=== PATIENT | male | born 1955 | race Caucasian/White ===

== ENCOUNTER → 2021-11-26 15:03 | Outpatient (BNVA) | payer SELFPAY | PROVIDERS: Family Provider Internal Medicine; PCP Family Medicine; Visit Provider Family Medicine | DX: E11.9 Type 2 diabetes mellitus without complications (principal) | CPT/HCPCS: 80053; 80061; 83036 ==

== ENCOUNTER → 2022-03-04 09:50 | Outpatient (BNVA) | payer MEDICARE, SELFPAY | PROVIDERS: Family Provider Internal Medicine; PCP Family Medicine; Visit Provider Family Medicine | DX: E11.9 Type 2 diabetes mellitus without complications (principal); I10 Essential (primary) hypertension | CPT/HCPCS: 80053; 80061; 83036 ==

== ENCOUNTER → 2022-06-12 09:36 | Outpatient (BNVA) | payer MEDICARE, SELFPAY | PROVIDERS: Family Provider Internal Medicine; PCP Family Medicine; Visit Provider Family Medicine | DX: I10 Essential (primary) hypertension (principal); E11.9 Type 2 diabetes mellitus without complications | CPT/HCPCS: 80053; 80061; 83036 ==

== ENCOUNTER → 2022-09-10 10:13 | Outpatient (BNVA) | payer MEDICARE, SELFPAY | PROVIDERS: Family Provider Internal Medicine; PCP Family Medicine; Visit Provider Family Medicine | DX: E87.1 Hypo-osmolality and hyponatremia (principal); I10 Essential (primary) hypertension; E11.9 Type 2 diabetes mellitus without complications | CPT/HCPCS: 80053; 80061; 83036 ==

== ENCOUNTER → 2023-03-13 10:12 | Outpatient (BNVA) | payer MEDICARE, SELFPAY | PROVIDERS: Family Provider Internal Medicine; PCP Family Medicine; Visit Provider Family Medicine | DX: E03.8 Other specified hypothyroidism (principal); E11.9 Type 2 diabetes mellitus without complications; I63.9 Cerebral infarction, unspecified; I10 Essential (primary) hypertension | CPT/HCPCS: 83036 ==

== ENCOUNTER → 2023-09-15 08:00 | Outpatient (BNVA) | payer MEDICARE, SELFPAY | PROVIDERS: Family Provider Internal Medicine; PCP Family Medicine; Visit Provider Family Medicine | DX: E11.9 Type 2 diabetes mellitus without complications (principal); I10 Essential (primary) hypertension; R73.03 Prediabetes; N18.9 Chronic kidney disease, unspecified | CPT/HCPCS: 80053; 80061; 83036; 85025 ==

== ENCOUNTER → 2024-03-15 10:15 | Outpatient (BNVA) | payer MEDICARE, SELFPAY | PROVIDERS: Family Provider Internal Medicine; PCP Family Medicine; Visit Provider Family Medicine | DX: E87.1 Hypo-osmolality and hyponatremia (principal); I10 Essential (primary) hypertension; E11.9 Type 2 diabetes mellitus without complications; R73.03 Prediabetes; N18.9 Chronic kidney disease, unspecified | CPT/HCPCS: 80053; 80061; 83036; 85025 ==

== ENCOUNTER 2024-03-24 13:57 | Outpatient (RCR) | payer MEDICARE, SELFPAY | END 2024-04-06 23:59 | disposition home or self-care (01) | LOC: SPT 13:57 | PROVIDERS: Family Provider Internal Medicine; PCP Family Medicine; Visit Provider Family Medicine | DX: I63.9 Cerebral infarction, unspecified (principal) | CPT/HCPCS: 97162 ==

== ENCOUNTER 2024-10-07 04:23 | Emergency (ER) | payer MEDICARE, SELFPAY ==
--- OUTSIDE RECORDS SUMMARY | 2024-09-20 04:30 | XMS_ITS ---
Author Organization [facility] Address [address] [facility] [place] [address] Care Team Providers Care Software Qa System Specialist Name Role Phone Kendrick Nuñez Primary Care Provider Darrel Arthur [phone] Encounters Encounter Location Date Provider Diagnosis [facility] [address] [place] [address] 09/20/2024 Darrel Moseley Plan Of Treatment Next Appt Details Provider Name:Darrel Mosleey , 10/13/2024 07:30:00 AM, [address] [place], [address], Provider Name:Rea mercado, 11/10/2024 01:15:00 PM, [address] [place], [address], Progress Notes * Uziel FORDDOB: (69 yo M)Acc No.[id number]:09/20/2024 Patient: Nixon ZEUSUziel MANN Provider: Vanessa Moseley M.D. :1955 A ge:69 Y S ex:Male Date:09/20/2024 Address:[address] [place] [address], [facility] Pcp:Kendrick Nuñez Check In:08:58 AM CSTCheck O ut:09:08 AM LPN Subjective: * Chief Complaints: * * Medical History: Objective: * Vitals: Assessment: Plan: * Treatment: * Billing Information: * Visit Code: * Procedure Codes: * Electronic signature of Darrel Moseley MD on 10/07/2024 at 04:30 AM CDT Sign off status: Pending * Provider: Vanessa Moseley M.D. Date: 09/20/2024 Generated for Lola valdez/Grace/Kendal on: 10/07/2024 04:30 AM CDT
--- OUTSIDE RECORDS SUMMARY | 2024-10-04 01:45 | XMS_ITS ---
Author Organization [facility] Address [address] [place] [address] Care Team Providers Care Staffing Assistant Name Role Phone Kendrick Nuñez Primary Care Provider Darrel Arthur [phone] REASON FOR VISIT [facility] +/- Encounters Encounter Location Date Provider Diagnosis [facility] [address] [place] [address], [place] [address] 10/04/2024 Darrel Moseley Plan Of Treatment Next Appt Details Provider Name:Darrel Moseley , 10/13/2024 07:30:00 AM, [address] [place], [address], Provider Name:Rea mercado, 11/10/2024 01:15:00 PM, [address] [place], [address], Progress Notes * Uziel FORDDOB: (69 yo M)Acc No.[id number]:10/04/2024 [place] Patient: Uziel RAJAN Provider: Vanessa Moseley M.D. :1955 A ge:69 Y S ex:Male Date:10/04/2024 Address:[address] [place] [address], [facility] Pcp:Kendrick Nuñez Subjective: * Chief Complaints: * 1 . LH +/-. * Medical History: Objective: * Vitals: Assessment: Plan: * Treatment: * Billing Information: * Visit Code: * Procedure Codes: * Electronic signature of Darrel Moseley MD on 10/07/2024 at 04:30 AM CDT Sign off status: Pending * Provider: Vanessa Moseley M.D. Date: 10/04/2024 Generated for Lola valdez/Grace/Kendal on: 10/07/2024 04:30 AM CDT
--- OUTSIDE RECORDS SUMMARY | 2024-10-06 09:45 | XMS_ITS ---
Author Organization [facility] Address [address] [place] [address] Care Team Providers Care Wire Mill Rover Name Role Phone Kendrick Nuñez Primary Care Provider Darrel Arthur Unavailable [phone] Allergies No Known Allergies REASON FOR VISIT heart cath follow w/darrel 10/06/24 pr, verbally verified meds Medications Medication SIG (Take, Route, Frequency, Duration) Notes Start Date End Date Status Atorvastatin Calcium 20 MG TAKE 1 TABLET BY MOUTH ONCE DAILY Oral for 90 Days Active Pioglitazone HCl 15 MG 1 tablet Oral Onc e a day for 90 days Active Eliquis 5 MG ONE TABLET Oral BID for 90 days Active Glimepiride 4 MG ONE TABLET Oral BID for 90 days Active Lisinopril 10 MG TAKE 1 TABLET BY INO TH TWICE DAILY Oral for 90 Days Active amLODIPine Besylate 5 MG TAKE 1 TABLET B Y MOUTH ONCE DAILY Oral for 90 Days Active Clopidogrel Bisulfate 75 MG 1 tablet Ora lly Once a day for 30 day(s) 10/06/2024 Active Social History Tobacco Use: Social History Observation Description Date Details (start date - stop date) Former Smoker NA - NA Tobacco Control (Standard) Question Answer Notes Tobacco use: Former smoker Problems Problem Type SNOMED Code ICD Code Onset Dates Problem Status W/U Status Risk Notes Problem Anginal pain (I20.9) Active confirmed Vital Signs Blood pressure systolic 130 mm Hg 10/07/19 25 Blood pressure diastolic 86 mm Hg 025 Heart Rate 99 /min 10/06/2024 Height 71 in 10/06/2024 Weight 241 lbs 10/06/2024 BMI 33.61 kg/m2 10/06/2024 Oximetry 97 % 10/06/2024 Weight-kg 109.32 kg 10/06/2024 Procedures Procedure Date Ordered Date Performed Result Body Sit e Coronary Angio with Left Heart Cath 10/06/2024 N/A Encounters Encounter Location Date Provider Diagnosis [facility] [address] [place] [phone] 10/06/2024 Darrel Moseley CAD (coronary artery disease) I25.10 ; Hypertension I10 ; Paroxysmal A-fib I48.0 and Anginal pain I20.9 Assessments Encounter Date Diagnosis (ICD Code) Assessment Notes Treatment Notes Treatment Clinical Notes Section Notes 10/06/2024 CAD (coronary artery disease) (ICD-10 - I25.10) Coronary Artery Disease: Two-vessel CAD including proximal to mid LAD disease as well as a critical circumflex lesion. Patient would like to proceed with staged PCI of the LAD and circumflex artery. Procedure explained in detail including risks potential complications alternatives and benefits. He does not wish to undergo CABG. I think this is reasonable especially given his history of prior stroke and residual left-sided weakness. I will start him on clopidogrel 75 mg daily. He knows to stop Eliquis 3 days prior to his staged PCI. Paroxysmal Atrial Fibrillation - Continue Eliquis 5 mg twice daily Hypertension - Controlled. Hyperlipidemia - Continue atorvastatin 20mg daily. Diabetes Mellitus - Controlled. 10/06/2024 Hypertension (ICD-10 - I10) Coronary Artery Disease: Two-vessel CAD including proximal to mid LAD disease as well as a critical circumflex lesion. Patient would like to proceed with staged PCI of the LAD and circumflex artery. Procedure explained in detail including risks potential complications alternatives and benefits. He does not wish to undergo CABG. I think this is reasonable especially given his history of prior stroke and residual left-sided weakness. I will start him on clopidogrel 75 mg daily. He knows to stop Eliquis 3 days prior to his staged PCI. Paroxysmal Atrial Fibrillation - Continue Eliquis 5 mg twice daily Hypertension - Controlled. Hyperlipidemia - Continue atorvastatin 20mg daily. Diabetes Mellitus - Controlled. 10/06/2024 Paroxysmal A-fib (ICD-10 - I48.0) Coronary Artery Disease: Two-vessel CAD including proximal to mid LAD disease as well as a critical circumflex lesion. Patient would like to proceed with staged PCI of the LAD and circumflex artery. Procedure explained in detail including risks potential complications alternatives and benefits. He does not wish to undergo CABG. I think this is reasonable especially given his history of prior stroke and residual left-sided weakness. I will start him on clopidogrel 75 mg daily. He knows to stop Eliquis 3 days prior to his staged PCI. Paroxysmal Atrial Fibrillation - Continue Eliquis 5 mg twice daily Hypertension - Controlled. Hyperlipidemia - Continue atorvastatin 20mg daily. Diabetes Mellitus - Controlled. 10/06/2024 Anginal pain (ICD-10 - I20.9) Coronary Artery Disease: Two-vessel CAD including proximal to mid LAD disease as well as a critical circumflex lesion. Patient would like to proceed with staged PCI of the LAD and circumflex artery. Procedure explained in detail including risks potential complications alternatives and benefits. He does not wish to undergo CABG. I think this is reasonable especially given his history of prior stroke and residual left-sided weakness. I will start him on clopidogrel 75 mg daily. He knows to stop Eliquis 3 days prior to his staged PCI. Paroxysmal Atrial Fibrillation - Continue Eliquis 5 mg twice daily Hypertension - Controlled. Hyperlipidemia - Continue atorvastatin 20mg daily. Diabetes Mellitus - Controlled. Plan Of Treatment Medication Medication Name Sig Start Date Stop Date Notes Clopidogrel Bisulfate 75 MG 1 tablet Ora lly Once a day for 30 day(s) 10/06/2024 Pending Test Test Name Order Date Prothrombin Time 23552 10/06/2024 Basic Metabolic Panel (BMP) 96820 2024 Lipid Panel Reflex DLDL 85480, 24427 05/2024 Partial Thromboplastin Time 04554 2024 CBC Reflex Man Diff 93355, 14614 025 Electrocardiogram 12 Lead Tracing-[id number] 10/06/2024 Coronary Angio with Left Heart Cath 05/2024 Next Appt Details Follow Up: 4 Weeks w/ Alexis Washburn: Provider Name:Darrel Moseley , 10/13/2024 07:30:00 AM, [address], [address], Provider Name:Rea mercado, 11/10/2024 01:15:00 PM, [address], [address], Progress Notes * Isela FORD: (69 yo M)Acc No.[id number]:10/06/2024 Progress Notes Patient: Uziel RAJAN Provider: Vanessa Moseley M.D. :1955 A ge:69 Y S ex:Male Date:10/06/2024 Address:[address] [place] [address], [facility] Pcp:Kendrick Nuñez Check In:02:45 PM CSTCheck O ut:04:10 PM MORTAR MAKER Subjective: * Chief Complaints: * 1 . Heart cath follow w/darrel 10/06/24 pr. 2. Verbally verified meds. * HPI: * :: Patient is a 69-year-old male referred for evaluation of an elevated coronary calcium score. He is accompanied by his . He has a history of atrial fibrillation, cerebrovascular accident with residual left-sided weakness, and diabetes. He reports progressive shortness of breath and severe fatigue. He is currently on Eliquis for atrial fibrillation. Cardiac Diagnostic Studies: CT Calcium Score: Total Agatston score 2046.5, consistent with severe coronary artery disease burden. * ROS: G eneral/Constitutional: Patient denies f ever , chills, sweats. Energy level is fair to poor. H ematology: Patient denies s wollen glands, excessive bruising. ? O phthalmologic: Patient denies c hange in vision, other eye problems. ? R espiratory: Patient denies c ough, congestion. A dmits S hortness of breath. A dmits S hortness of breath with exertion. C ardiovascular: Patient denies c hest pain, dizziness, palpitations, See HPI. A dmits S welling in hands/feet, a nkles. G astrointestinal: Patient denies a bdominal pain, blood in stool, diarrhea, nausea, vomiting. G enitourinary: Patient denies b lood in the urine, painful urination. D enies K idney problems. E NT: Patient denies d ecreased hearing , decreased sense of smell , difficulty in swallowing , ear pain , hoarseness , ringing in the ears , sinus pain , sore throat , swollen glands. E ndocrine: Patient denies c old intolerance, excessive thirst, heat intolerance, excessive hunger. M usculoskeletal: Patient denies a rthritis/arthralgia, muscle aches. A dmits L eg cramps. P eripheral Vascular: Patient denies p ain/cramping in legs after exertion. A dmits P ain/cramping in legs after exertion, l eft leg due to stroke. S kin: Patient denies h air changes, rash, itching. ? N eurologic: Patient denies d izziness , fainting , loss of strength , loss of use of extremity , new onset headache , seizures , stroke , tingling/numbness , tremor. ? P sychiatric: Patient denies f eelings of anxiety , feelings of depression. * Medical History: P vin:Obesity (disorder) , Status :: Active, HYPERTENSION, HYPERLIPIDEMIA, DIABETIC, STROKE. * Surgical History: a ngiogram x 2 , LHC - > Severe 2V obstructive CAD, including proximal LAD disease as detailed above. > Codominant coronary system. > Normal Left ventricular end diastolic pressure of 8 mmHg. No significant gradient noted across the aortic valve on pullback. > Outpatient Cardiothoracic consult for CABG was placed. 10.04.2024. * Hospitalization/Major Diagno stic Procedure: D amira Past Hospitalization. * Family History: F ather: HEART DISEASE. M other: DIABETIC. * Social History: T obacco Use: T obacco Control (Standard) T obacco use: F ormer smoker D rugs/Alcohol: C affeine I ntake: 1 -2 cups per day Do you drink alcohol?: No. * Medications: T aking amLODIPine Besylate 5 MG Tablet TAKE 1 TABLET BY MOUTH ONCE DAILY Oral , Taking Atorvastatin Calcium 20 MG Tablet TAKE 1 TABLET BY MOUTH ONCE DAILY Oral , Taking Eliquis 5 MG Tablet ONE TABLET Oral BID , Taking Glimepiride 4 MG Tablet ONE TABLET Oral BID , Taking Lisinopril 10 MG Tablet TAKE 1 TABLET BY MOUTH TWICE DAILY Oral , Taking Pioglitazone HCl 15 MG Tablet 1 tablet Oral Once a day , Medication List reviewed and reconciled with the patient * Allergies: N .K.D.A. Objective: * Vitals: H t: 71 in, Wt:241lbs, Wt-k.32 kg, BMI:33.61Index, BP:130/86mm Hg, HR:99/min, Oxygen sat %:97%, O2 Source: RA. * Examination: G eneral Examination: GENERAL APPEARANCE: c omfortable, in no acute distress.? HEART: i rregularly regular r ate and rhythm, no murmurs. CHEST: b ilateral chest expansion, clear to auscultation bilaterally. ABDOMEN: s oft, nontender. EXTREMITIES: n o significant pedal edema.. NEUROLOGIC: n o gross deficits noted. ? Assessment: * Assessment: 1. C AD (coronary artery disease) - I25.10 (Primary) 2 . H ypertension - I10 3 . P aroxysmal A-fib - I48.0 4 . A nginal pain - I20.9? Coronary Artery Disease: Two -vessel CAD including proximal to mid LAD disease as well as a critical circumflex lesion. Patient would like to proceed with staged PCI of the LAD and circumflex artery. Procedure explained in detail including risks potential complications alternatives and benefits. He does not wish to undergo CABG. I think this is reasonable especially given his history of prior stroke and residual left-sided weakness. I will start him on clopidogrel 75 mg daily. He knows to stop Eliquis 3 days prior to his staged PCI. Paroxysmal Atrial Fibrillation - Continue Eliquis 5 mg twice daily Hypertension - Controlled. Hyperlipidemia - Continue atorvastatin 20mg daily. Diabetes Mellitus - Controlled. Plan: * Treatment: 2.?Hypertension?LAB: Prothrombin Time 54313 ?LAB: Basic Metabolic Panel (BMP) 54574 ?LAB: Lipid Panel Reflex DLDL 87563, 32528 ?LAB: Partial Thromboplastin Time 15439 ?LAB: CBC Reflex Man Diff 07525, 74179 ?Imaging: Electrocardiogram 12 Lead Tracing-[id number] ?Procedure: Coronary Angio with Left Heart Cath* Eugenie Salmeron LPN 025 03:57:22 PM CDT > RIGHT RADIAL APPROACH LHC+/- WITH DR. CRUZ ON 10.13.24 AT 0730AM CHECK IN AT 0600AM LABS TO BE DONE THE MORNING OF 10.13.24//Eugenie Sun LPN 10/06/2024 04:33:50 PM CDT > UPDATEstaged PCI of the LAD and circumflex artery 3.?Paroxysmal A-fib? Start Clopidogrel Bisulfate Tablet, 75 MG, 1 tablet, Orally, Once a day, 30 day(s), 30, Start Date:10/06/2024.?LAB: Prothrombin Time 93300 ?LAB: Basic Metabolic Panel (BMP) 80582 ?LAB: Lipid Panel Reflex DLDL 59906, 66382 ?LAB: Partial Thromboplastin Time 83708 ?LAB: CBC Reflex Man Diff 73341, 71017 ?Imaging: Electrocardiogram 12 Lead Tracing-61468 ?Procedure: Coronary Angio with Left Heart Cath* Eugenie Salmeron LPN 025 03:57:22 PM CDT > RIGHT RADIAL APPROACH LHC+/- WITH DR. CRUZ ON 10.13.24 AT 0730AM CHECK IN AT 0600AM LABS TO BE DONE THE MORNING OF 10.13.24//Eugenie Sun, BEDSPREAD CUTTER 10/06/2024 04:33:50 PM CDT > UPDATEstaged PCI of the LAD and circumflex artery 4.?Anginal pain?LAB: Prothrombin Time 23940 ?LAB: Basic Metabolic Panel (BMP) 68390 ?LAB: Lipid Panel Reflex DLDL 97470, 67831 ?LAB: Partial Thromboplastin Time 72252 ?LAB: CBC Reflex Man Diff 01001, 18207 ?Imaging: Electrocardiogram 12 Lead Tracing-77965 ?Procedure: Coronary Angio with Left Heart Cath* Eugenie Salmeron LPN 025 03:57:22 PM CDT > RIGHT RADIAL APPROACH LHC+/- WITH DR. CRUZ ON 10.13.24 AT 0730AM CHECK IN AT 0600AM LABS TO BE DONE THE MORNING OF 10.13.24//Eugenie Sun, BEDSPREAD CUTTER 10/06/2024 04:33:50 PM CDT > UPDATEstaged PCI of the LAD and circumflex artery * Procedure Codes: 3 075F SYST BP GE 130 - 139MM HG, 3079F DIAST BP 80-89 MM HG * Follow Up: 4 Weeks w/ Maddison * Billing Information: * Visit Code: 21770 Office Visit, Est Pt., Level 4. * Procedure Codes: 3075F SYST BP GE 130 - 139MM HG. 3079F DIAST BP 80-89 MM HG. * Electronic signature of Darrel Moseley MD on 10/07/2024 at 04:30 AM CDT Sign off status: Pending * Provider: Vanessa Moseley M.D. Date: 10/06/2024 Generated for Lola valdez/Grace/Kendal on: 10/07/2024 04:30 AM CDT History and Physical Notes * HPI (History of Present Illness) Category Sub-Category Detail Notes Category Not es : Patient is a 69-year-old male referred for evaluation of an elevated coronary calcium score. He is accompanied by his . He has a history of atrial fibrillation, cerebrovascular accident with residual left-sided weakness, and diabetes. He reports progressive shortness of breath and severe fatigue. He is currently on Eliquis for atrial fibrillation. Cardiac Diagnostic Studies: CT Calcium Score: Total Agatston score 2046.5, consistent with severe coronary artery disease burden. Examination Category Sub-Category Detail Notes Category Not es General Examination GENERAL APPEARANCE: comforta ble, in no acute distress HEART: irregularly regular rate and rhythm, no murmurs CHEST: bilateral chest expa nsion, clear to auscultation bilaterally ABDOMEN: soft, nontender NEUROLOGIC: no gross deficits no carlos EXTREMITIES: no significant pedal edema.
[2024-10-07 04:25] VITALS: BP 127/92; PULSE 77; RESP 12; TEMP 36.5; O2SAT 96; BMI 33.5
--- OUTSIDE RECORDS SUMMARY | 2024-10-07 04:30 | XMS_ITS | Patient Health Record ---
Author Organization [facility] Address [address] [place], [place] [address] Care Team Providers Care Review Appraiser Name Role Phone Kendrick Nuñez Primary Care Provider Darrel Arthur Unavailable [phone] Libra Christopher Unavailable [phone] Allergies No Known Allergies Results Component Value Reference Range Notes Schedule Confirmation (Not y et reviewed by provider) Interpretation: Performing Lab: Notes/Report: Heart Cath Lt poss PTCA Prothrombin Time 89869 (Not yet reviewed by provider) Interpretation: Performing Lab: Notes/Report: ProTime 10.4 9.1-11.9 SEC Normal Range: 9 .1-11.9 INR .98 .90-1.20 Therapeutic Range: 2.0-3.0 Therapaeutic Range for heart valve replacement: 2.5-3.50 Basic Metabolic Panel (BMP) 14746 (Not yet reviewed by provider) Interpretation: Performing Lab: Notes/Report: Sodium 139 136-145 MMOL/L Potassium 4.6 3.5-5.1 MMOL/L Chloride 109 98-107 MMOL/L CO2 25.6 20.0-31.0 MMOL/L Glucose Serum 179 71-110 MG/DL Testing perfor med at [facility], [address] [place] [address] [place] [address]. CLIA ID#: [id number] BUN 20 7-21 MG/DL Creat 1.30 .57-1.17 MG/DL C-fuwwdk-e-benzoquinone imine (NAPQI) is a metabolite of acetaminophen, NAPQI concentrations of apparoximately 10 mg/L correlation to toxic levels of acetaminophen demonstrates a greater than or equil to 10% change in results. NAPQI concentrations greater than this may lead to falsely depressed results for patient samples. Use of this assay is not recommended for patients undergoing treatment with phenindione, due to the potential for falsely depressed results. GFR 60.0 Calculation per formed from GFR calculator provided by the [employer]. Glomerular Filtration rate(GRF) is the best overall index of kidney function. Normal GFR varies according to age,sex, body size, and declines with age. The National Kidney Foundation recommends using the CKD-EPI Creatinine Equation(2020) to estimate GFR. Anion Gap 9 5-15 BUN/Creat Ratio 15.4 12.0-20.0 % Calcium 9.5 8.7-10.4 MG/DL Osmo Serum,Calculated 295 280-300 MOSM/KG Partial Thromboplastin Time 44366 (Not yet reviewed by provider) Interpretation: Performing Lab: Notes/Report: PTT 24.7 22.6-31.8 SEC Therapeutic Range: 60-100. Critical Value Starting at > 100. CBC [place] Diff [address], 8 5007 (Not yet reviewed by provider) Interpretation: Performing Lab: Notes/Report: WBC 4.9 4.5-11.0 X10'3 RBC 4.56 4.50-5.90 X10'6 Hgb 13.7 13.5-17.5 G/DL Hct 42.7 41.0-53.0 % MCV 93.6 80.0-100.0 FL MCH 30.0 27.0-31.0 PG MCHC 32.1 31.0-37.0 G/DL Platelet 226 150-400 X10'3 RDW-SD 46.4 35.0-49.0 FL RDW-CV 13.3 12.2-15.6 % MPV 8.8 9.2-12.0 FL Review Auto Diff Conf WBC Auto Diff--49424 (Not ye t reviewed by provider) Interpretation: Performing Lab: Notes/Report: Added by Discern Rules Neutro Auto% 49.8 40.0-70.0 % Lymph Auto% 37.5 22.0-44.0 % Dixon Auto% 10.1 3.0-7.0 % Eos Auto% 2.2 2.0-4.0 % Baso Auto% 0.2 0.0-1.0 % NRBC% .00 .00-.20 /100 int act WBC's Neutro Abs 2.45 .80-7.70 Absolute Neutrophil Count 2450 Lymph Abs 1.85 .10-4.10 Dixon Abs .50 .20-1.00 Eos Abs .11 .00-.40 Baso Abs .01 .00-.20 NRBC# .00 .00-.20 Imm Gran Abs .01 .00-.10 Imm Gran% .2 .0-.4 % zzzHeart Cath Lt poss PTCA ( Not yet reviewed by provider) Interpretation: Performing Lab: Notes/Report: [id number]=iSite Schedule Confirmation (Not y et reviewed by provider) Interpretation: Performing Lab: Notes/Report: Heart Cath Lt poss PTCA Echo Complete EC-[id number] (Not yet reviewed by provider) Interpretation: Performing Lab: Notes/Report: Cardiopulmonary Services Name: MELISSA FORD Study Date: 09/20/2024 : 1955 Patient Location: [facility] Age: 69 yrs Gender: Male Height: 71 in Weight: 242 lb BP: 118/56 mmHg HR: 86 BSA: 2.3 m2 History: afib, CAD, HTN, HLD Reason For Study: afib Interpretation Summary A complete two-dimensional transthoracic echocardiogram was performed (2D, M- mode, Doppler and color flow Doppler). AF at rest. Left ventricular systolic function is borderline reduced. Left Ventricular Function is estimated to be 50-55%. There is mild concentric left ventricular hypertrophy. The right ventricle is moderately dilated. There is mild aortic valve sclerosis without evidence of stenosis.No hemodynamically significant valvular aortic stenosis. Trace aortic regurgitation. There is no mitral regurgitation noted. EKG Rhythm is A-fib. Left Ventricle The left ventricle is normal in size. There is mild concentric left ventricular hypertrophy. Left ventricular systolic function is borderline reduced. Left Ventricular Function is estimated to be 50-55%. Right Ventricle The right ventricle is moderately dilated. The right ventricular systolic function is normal. Atria The left atrial size is normal. The right atrium is mild to moderately dilated. Great Vessels Mild aortic root dilatation. Mitral Valve The mitral valve is grossly normal. There is no mitral regurgitation noted. Aortic Valve The aortic valve is trileaflet. The aortic valve opens well. There is mild aortic valve sclerosis without evidence of stenosis. No hemodynamically significant valvular aortic stenosis. Trace aortic regurgitation. Tricuspid Valve The triscupid valve leaflets appear normal. There is no stenosis, fluttering, or prolapse. There is trace tricuspid regurgitation. Pulmonic Valve The pulmonic valve is not well visualized. Mild pulmonic valvular regurgitation. MMode/2D Measurements & Calculations IVSd: 1.2 cm LVIDd: 4.7 cm FS: 26.1 % LVIDs: 3.5 cm EDV(Teich): 103.3 ml LVPWd: 1.3 cm ESV(Teich): 50.4 ml EF(Teich): 51.2 % asc Aorta Diam: 3.2 cm LVOT diam: 2.1 cm LVOT area: 3.5 cm2 Time Measurements Aortic HR: 81.3 BPM MM HR: 79.5 BPM Pulm. R-R: 0.68 sec Pulm. HR: 88.1 BPM Doppler Measurements & Calculations Ao V2 max: 129.3 cm/sec AI max jess: 124.1 cm/sec LV V1 max P.7 mmHg Ao max P.7 mmHg AI max P.2 mmHg LV V1 mean P.5 mmHg Ao V2 mean: 91.1 cm/sec LV V1 max: 81.7 cm/sec Ao mean P.8 mmHg AI dec slope: 52.0 cm/sec2 LV V1 mean: 57.1 cm/sec Ao V2 VTI: 24.0 cm AI P1/2t: 699.4 msec LV V1 VTI: 15.2 cm GEREMIAS(I,D): 2.2 cm2 GEREMIAS(V,D): 2.2 cm2 CO(LVOT): 4.3 l/min PA V2 max: 77.6 cm/sec RV V1 max P.2 mmHg SV(LVOT): 53.1 ml PA max P.4 mmHg RV V1 mean P.66 mmHg PA V2 mean: 50.6 cm/sec RV V1 max: 55.6 cm/sec PA mean P.2 mmHg RV V1 mean: 37.7 cm/sec PA V2 VTI: 14.0 cm RV V1 VTI: 10.3 cm TR max jess: 232.5 cm/sec RAP systole: 10.0 mmHg TR max P.6 mmHg RVSP(TR): 31.6 mmHg Ordering Physician: Darrel Moseley Referring Physician: Darrel Moseley Performed By: Denice Brewer, GUILLERMINA Echo Complete EC-48414 (Not yet reviewed by provider) Interpretation: Performing Lab: Notes/Report: [id number]=iSite WBC Auto Diff--24557 (Not ye t reviewed by provider) Interpretation: Performing Lab: Notes/Report: Added by Discern Rules Neutro Auto% 49.0 40.0-70.0 % Lymph Auto% 39.3 22.0-44.0 % Dixon Auto% 9.1 3.0-7.0 % Eos Auto% 2.2 2.0-4.0 % Baso Auto% 0.2 0.0-1.0 % NRBC% .00 .00-.20 /100 int act WBC's Neutro Abs 2.27 .80-7.70 Absolute Neutrophil Count 2270 Lymph Abs 1.82 .10-4.10 Dixon Abs .42 .20-1.00 Eos Abs .10 .00-.40 Baso Abs .01 .00-.20 NRBC# .00 .00-.20 Imm Gran Abs .01 .00-.10 Imm Gran% .2 .0-.4 % CBC Reflex Man Diff 19237, 8 5007 (Not yet reviewed by provider) Interpretation: Performing Lab: Notes/Report: Diagnosis Description: Atherosclerotic heart disease of [place] coronary artery without angina pectoris Diagnosis Description: Essential (primary) hypertension Diagnosis Description: Paroxysmal atrial fibrillation WBC 4.6 4.5-11.0 X10'3 RBC 4.59 4.50-5.90 X10'6 Hgb 13.9 13.5-17.5 G/DL Hct 42.8 41.0-53.0 % MCV 93.2 80.0-100.0 FL MCH 30.3 27.0-31.0 PG MCHC 32.5 31.0-37.0 G/DL Platelet 248 150-400 X10'3 RDW-SD 46.9 35.0-49.0 FL RDW-CV 13.7 12.2-15.6 % MPV 9.5 9.2-12.0 FL Review Auto Diff Conf Partial Thromboplastin Time 65889 (Not yet reviewed by provider) Interpretation: Performing Lab: Notes/Report: Diagnosis Description: Atherosclerotic heart disease of [place] coronary artery without angina pectoris Diagnosis Description: Essential (primary) hypertension Diagnosis Description: Paroxysmal atrial fibrillation PTT 26.9 22.6-31.8 SEC Therapeutic Range: 60-100. Critical Value Starting at > 100. Lipid Panel Reflex DLDL 8006 1, 70048 (Not yet reviewed by provider) Interpretation: Performing Lab: Notes/Report: Diagnosis Description: Atherosclerotic heart disease of [place] coronary artery without angina pectoris Diagnosis Description: Essential (primary) hypertension Diagnosis Description: Paroxysmal atrial fibrillation Trig 106 Classification Guidelines:Triglycerides Adults: >20yrs Desirable <150 Borderline High 150-199 High 200-499 Very high >=500 Children: Male 0-4 yr 22-99 5-9 yr 30-101 10-14 yr 32-125 15-19 yr 37-148 Children: Female 0-4 yr 34-112 5-9 yr 32-105 10-14 yr 37-131 15-19 yr 39-132 Chol 162 <=200 MG/DL HDL 49 30-72 MG/DL Reference Ranges:HDL Male: 5-9y 38-75 10-14y 37-74 15-19y 30-63 >=20y 40-59 Female: 5-9y 36-73 10-14y 37-70 15-19y 35-74 >=20y 40-59 CH/HDL 3.3 0.0-4.9 RATIO LDL 92 0-130 MG/DL LDL result is i naccurate , if Trig is >400 mg/dl. See DLDL result. Basic Metabolic Panel (BMP) 61755 (Not yet reviewed by provider) Interpretation: Performing Lab: Notes/Report: Diagnosis Description: Atherosclerotic heart disease of [place] coronary artery without angina pectoris Diagnosis Description: Essential (primary) hypertension Diagnosis Description: Paroxysmal atrial fibrillation Sodium 141 136-145 MMOL/L Potassium 4.9 3.5-5.1 MMOL/L Chloride 108 98-107 MMOL/L CO2 23.5 20.0-31.0 MMOL/L Glucose Serum 168 71-110 MG/DL Testing perfor med at [facility], [address] [place] [address] [place] [address]. CLIA ID#: [id number] BUN 22 7-21 MG/DL Creat 1.32 .57-1.17 MG/DL Y-gtxorg-e-benzoquinone imine (NAPQI) is a metabolite of acetaminophen, NAPQI concentrations of apparoximately 10 mg/L correlation to toxic levels of acetaminophen demonstrates a greater than or equil to 10% change in results. NAPQI concentrations greater than this may lead to falsely depressed results for patient samples. Use of this assay is not recommended for patients undergoing treatment with phenindione, due to the potential for falsely depressed results. GFR 58.6 Calculation per formed from GFR calculator provided by the National Kidney Foundation. Glomerular Filtration rate(GRF) is the best overall index of kidney function. Normal GFR varies according to age,sex, body size, and declines with age. The National Kidney Foundation recommends using the CKD-EPI Creatinine Equation(2020) to estimate GFR. Anion Gap 14 5-15 BUN/Creat Ratio 16.7 12.0-20.0 % Calcium 9.9 8.7-10.4 MG/DL Osmo Serum,Calculated 299 280-300 MOSM/KG Prothrombin Time 38276 (Not yet reviewed by provider) Interpretation: Performing Lab: Notes/Report: Diagnosis Description: Atherosclerotic heart disease of [place] coronary artery without angina pectoris Diagnosis Description: Essential (primary) hypertension Diagnosis Description: Paroxysmal atrial fibrillation ProTime 10.6 9.1-11.9 SEC Normal Range: 9 .1-11.9 INR 1.00 .90-1.20 Therapeutic Range: 2.0-3.0 Therapaeutic Range for heart valve replacement: 2.5-3.50 zzzCT Cardiac Calcium Scorin g Screening-42611 Reviewed date:07/23/2024 11:15:41 AM Interpretation: Performing Lab: Notes/Report: See Below For Report CT Cardiac Calcium Scoring Screening Read See Below For Report zzzCT Cardiac Calcium Scorin g Screening RAD Reviewed date:07/23/2024 11:15:41 AM Interpretation: Performing Lab: Notes/Report: See Below For Report Technique:. Gated computed tomography was obtained through the chest Read See Below For Report zzzUS Ankle Brachial Pressur e Index Screen Reviewed date:07/23/2024 11:15:41 AM Interpretation: Performing Lab: Notes/Report: See Below For Report US Ankle Brachial Pressure Index Screen Read See Below For Report Schedule Confirmation Reviewed date:07/23/2024 11:15:41 AM Interpretation: Performing Lab: Notes/Report: Schedule Confirmation Reviewed date:07/23/2024 11:15:41 AM Interpretation: Performing Lab: Notes/Report: US Ankle Brachial Pressure Index Screen Schedule Confirmation Reviewed date:07/23/2024 11:15:48 AM Interpretation: Performing Lab: Notes/Report: CT Cardiac Calcium Scoring Screening RAD Schedule Confirmation Reviewed date:07/23/2024 11:15:48 AM Interpretation: Performing Lab: Notes/Report: Lipid Panel CSP zzzCT Cardiac Calcium Scorin g Screening RAD Reviewed date:07/23/2024 11:15:48 AM Interpretation: Performing Lab: Notes/Report: [id number]=iSite zzzCT Cardiac Calcium Scorin g Screening-91190 Reviewed date:07/23/2024 11:15:48 AM Interpretation: Performing Lab: Notes/Report: eje=[id number]&org=iSite zzzUS Ankle Brachial Pressur e Index Screen Reviewed date:07/23/2024 11:15:48 AM Interpretation: Performing Lab: Notes/Report: cid=[id number]&org=iSite Hemoglobin A0L--JS CPT Reviewed date:07/23/2024 11:15:48 AM Interpretation: Performing Lab: Notes/Report: Hgb A1c 8.5 3.8-6.4 % Interpretation Of Hgb A1c: 4.5-6.2 % nondiabetics. >7.0 % diabetics. EAG 197 Estimated [place] ge Glucose(EAG). Lipid Panel CSP--NO CPT Reviewed date:07/23/2024 11:15:48 AM Interpretation: Performing Lab: Notes/Report: Trig 141 Classification Guidelines:Triglycerides Adults: >20yrs Desirable <150 Borderline High 150-199 High 200-499 Very high >=500 Children: Male 0-4 yr 22-99 5-9 yr 30-101 10-14 yr 32-125 15-19 yr 37-148 Children: Female 0-4 yr 34-112 5-9 yr 32-105 10-14 yr 37-131 15-19 yr 39-132 Chol 181 <=200 MG/DL HDL 47 30-72 MG/DL Reference Ranges:HDL Male: 5-9y 38-75 10-14y 37-74 15-19y 30-63 >=20y 40-59 Female: 5-9y 36-73 10-14y 37-70 15-19y 35-74 >=20y 40-59 CH/HDL 3.8 0.0-4.9 RATIO LDL 105 0-130 MG/DL LDL result is i naccurate , if Trig is >400 mg/dl. See DLDL result. Echo Complete EC-[id number] Reviewed date:08/16/2024 11:24:22 AM Interpretation: Performing Lab: Notes/Report: US Carotid Doppler Bilateral -66894 (Not yet reviewed by provider) Interpretation: Performing Lab: Notes/Report: See Below For Report US Carotid Doppler Bilateral Read See Below For Report US Doppler Scan Arterial UE Bilat-56649 (Not yet reviewed by provider) Interpretation: Performing Lab: Notes/Report: See Below For Report US Doppler Scan Arterial UE Bilat Read See Below For Report US Ext Jay Map-70120 (Not ye t reviewed by provider) Interpretation: Performing Lab: Notes/Report: See Below For Report US Ext Jay Map Read See Below For Report zzzHeart Cath Lt poss PTCA ( Not yet reviewed by provider) Interpretation: Performing Lab: Notes/Report: See Below For Report This report was dictated outside of the [employer] system. Read See Below For Report Schedule Confirmation (Not y et reviewed by provider) Interpretation: Performing Lab: Notes/Report: Heart Cath Lt poss PTCA US Ext Jay Map-93069 (Not ye t reviewed by provider) Interpretation: Performing Lab: Notes/Report: [id number]=iSite US Doppler Scan Arterial UE Bilat-10986 (Not yet reviewed by provider) Interpretation: Performing Lab: Notes/Report: [email or web address]=[id number]=iSite US Carotid Doppler Bilateral -23272 (Not yet reviewed by provider) Interpretation: Performing Lab: Notes/Report: [email or web address]=[id number]=iSite Schedule Confirmation (Not y et reviewed by provider) Interpretation: Performing Lab: Notes/Report: Heart Cath Lt poss PTCA Schedule Confirmation (Not y et reviewed by provider) Interpretation: Performing Lab: Notes/Report: Heart Cath Lt poss PTCA Schedule Confirmation Reviewed date:06/30/2024 05:26:01 PM Interpretation: Performing Lab: Notes/Report: CT Cardiac Calcium Scoring Screening RAD Schedule Confirmation Reviewed date:06/30/2024 05:26:01 PM Interpretation: Performing Lab: Notes/Report: Lipid Panel CSP Schedule Confirmation Reviewed date:06/30/2024 05:26:01 PM Interpretation: Performing Lab: Notes/Report: Nurse Assessment-Cardiac Screening Schedule Confirmation Reviewed date:06/30/2024 05:26:01 PM Interpretation: Performing Lab: Notes/Report: US Ankle Brachial Pressure Index Screen Reason For Referral Reason Referral from Dr Sneha guerra for CABG consult Diagnosis 1 CAD (coronary artery disease) (I25.10) Referral Organization [facility] Referring Provider First Name Darrel Referring Provider Last Name Pradip Referring Provider Speciality Interventi onal Cardiology Referred Organization [facility] Referred Provider Simon Martell Referred Address [address] [place] [address] MEENA JIMENEZ [address],[place],[address],[place] Referred Provider Specialty Thoracic Edmund paulo Referral Priority Routine Medications Medication SIG (Take, Route, Frequency, Duration) Notes Start Date End Date Status amLODIPine Besylate 5 MG TAKE 1 TABLET B Y MOUTH ONCE DAILY Oral for 90 Days Active Atorvastatin Calcium 20 MG TAKE 1 TABLET BY MOUTH ONCE DAILY Oral for 90 Days Active Pioglitazone HCl 15 MG 1 tablet Oral Onc e a day for 90 days Active Eliquis 5 MG ONE TABLET Oral BID for 90 days Active Clopidogrel Bisulfate 75 MG 1 tablet Ora lly Once a day for 30 day(s) 10/06/2024 Active Glimepiride 4 MG ONE TABLET Oral BID for 90 days Active Lisinopril 10 MG TAKE 1 TABLET BY INO TH TWICE DAILY Oral for 90 Days Active Social History Tobacco Use: Social History Observation Description Date Details (start date - stop date) Former Smoker NA - NA Tobacco Control (Standard) Question Answer Notes Tobacco use: Former smoker Problems Problem Type SNOMED Code ICD Code Onset Dates Problem Status W/U Status Risk Notes Problem Hyperlipidaemia (75967054) Hyperlipemia (E78.5) Active confirmed Problem Coronary artery disease (91536634) CAD (coronary artery disease) (I25.10) Active confirmed Problem Hypertension (25218260) Hypertension (I10) Active confirmed Problem Atrial fibrillation (61898688) Paroxysmal A-fib (I48.0) Active confirmed Problem Anginal pain (I20.9) Active confirmed Vital Signs Heart Rate 99 /min 10/06/2024 Blood pressure diastolic 86 mm Hg 10/06/2024 Oximetry 97 % 10/06/2024 Weight-kg 109.32 kg 10/06/2024 Height 71 in 10/06/2024 Blood pressure systolic 130 mm Hg 10/06/2024 Weight 241 lbs 10/06/2024 BMI 33.61 kg/m2 10/06/2024 Procedures Procedure Date Ordered Date Performed Result Body Sit e Coronary Angio with Left Heart Cath 07/30/2024 N/A Coronary Angio with Left Heart Cath 10/06/2024 N/A Encounters Encounter Location Date Provider Diagnosis [facility] [address] [place] [address], [place] [address] 10/06/2024 Libra Christopher [facility] [address] [place] [address] 10/06/2024 Darrel Moseley [facility] [address] [place] [address] 07/30/2024 Darrel Moseley [facility] [address] [place] [address], [place] [address] 07/30/2024 Darrel Moseley [facility] [address] [place] [address], [place] [address] 09/22/2024 Darrel Moseley [facility] [address] [place] [address], [place] [address] 09/22/2024 Darrel Moseley [facility] [address] [place] [address], [place] [address] 10/05/2024 Darrel Moseley [facility] [address] [place] [address], [place] [address] 10/06/2024 Darrel Moseley [facility] [address] [place] [address], [place] [address] 07/30/2024 Darrel Moseley CAD (coronary artery disease) I25.10 ; Hypertension I10 ; Hyperlipemia E78.5 and Paroxysmal A-fib I48.0 [facility] [address] [place] [address] 10/06/2024 Darrel Moseley CAD (coronary artery disease) I25.10 ; Hypertension I10 ; Paroxysmal A-fib I48.0 and Anginal pain I20.9 [facility] [address] [place] [address], [place] [address] 10/04/2024 Darrel Moseley [facility] [address] [place] [address], [place] [address] 09/20/2024 Darrel Moseley Assessments Encounter Date Diagnosis (ICD Code) Assessment [...] atorvastatin 20mg daily. Diabetes Mellitus - Controlled. 07/30/2024 CAD (coronary artery disease) (ICD-10 - I25.10) Coronary Artery Disease - Order echocardiogram. Schedule left heart catheterization for September due to high-risk calcium score and worsening symptoms of shortness of breath and severe fatigue. Paroxysmal Atrial Fibrillation - Continue Eliquis. Hypertension - Controlled. Blood pressure currently 118/56 mmHg. Hyperlipidemia - Continue atorvastatin 20mg daily. Diabetes Mellitus - Controlled. Monitor for now. 07/30/2024 Hypertension (ICD-10 - I10) Coronary Artery Disease - Order echocardiogram. Schedule left heart catheterization for September due to high-risk calcium score and worsening symptoms of shortness of breath and severe fatigue. Paroxysmal Atrial Fibrillation - Continue Eliquis. Hypertension - Controlled. Blood pressure currently 118/56 mmHg. Hyperlipidemia - Continue atorvastatin 20mg daily. Diabetes Mellitus - Controlled. Monitor for now. 07/30/2024 Hyperlipemia (ICD-10 - E78.5) Coronary Artery Disease - Order echocardiogram. Schedule left heart catheterization for September due to high-risk calcium score and worsening symptoms of shortness of breath and severe fatigue. Paroxysmal Atrial Fibrillation - Continue Eliquis. Hypertension - Controlled. Blood pressure currently 118/56 mmHg. Hyperlipidemia - Continue atorvastatin 20mg daily. Diabetes Mellitus - Controlled. Monitor for now. 10/06/2024 Paroxysmal A-fib (ICD-10 - I48.0) Coronary [...] atorvastatin 20mg daily. Diabetes Mellitus - Controlled. 07/30/2024 Paroxysmal A-fib (ICD-10 - I48.0) Coronary Artery Disease - Order echocardiogram. Schedule left heart catheterization for September due to high-risk calcium score and worsening symptoms of shortness of breath and severe fatigue. Paroxysmal Atrial Fibrillation - Continue Eliquis. Hypertension - Controlled. Blood pressure currently 118/56 mmHg. Hyperlipidemia - Continue atorvastatin 20mg daily. Diabetes Mellitus - Controlled. Monitor for now. Plan Of Treatment Pending Test Test Name Order Date Prothrombin Time 36602 10/06/2024 Prothrombin Time 43581 07/30/2024 Prothrombin Time 81259 10/04/2024 Prothrombin Time 20935 09/20/2024 Basic Metabolic Panel (BMP) 82739 2024 Basic Metabolic Panel (BMP) 51895 2024 Basic Metabolic Panel (BMP) 35590 2024 Basic Metabolic Panel (BMP) 16681 2024 Lipid Panel Reflex DLDL 45100, 86877 Lipid Panel Reflex DLDL 60756, 75861 05/2024 Lipid Panel Reflex DLDL 94537, 82344 04/ Partial Thromboplastin Time 27280 2024 Partial Thromboplastin Time 55109 2024 Partial Thromboplastin Time 40732 2024 Partial Thromboplastin Time 99379 2024 CBC Reflex Man Diff 59425, 64061 025 CBC Reflex Man Diff 69369, 75032 025 CBC Reflex Man Diff 11690, 51100 025 CBC Reflex Man Diff 00561, 97100 025 Echo Complete EC-[id number] 09/20/2024 Echo Complete EC-[id number] 09/20/2024 US Carotid Doppler Bilateral-71168 10/04 US Carotid Doppler Bilateral-42392 10/04 US Doppler Scan Arterial UE Bilat-80703 10/04/2024 US Doppler Scan Arterial UE Bilat-56900 10/04/2024 US Ext Jay Map-61324 10/04/2024 US Ext Jay Map-45565 10/04/2024 Electrocardiogram 12 Lead Tracing-03060 07/30/2024 Electrocardiogram 12 Lead Tracing-54336 10/06/2024 WBC Auto Diff--08685 10/04/2024 WBC Auto Diff--17508 09/20/2024 zzzHeart Cath Lt poss PTCA 10/04/2024 zzzHeart Cath Lt poss PTCA 10/04/2024 Electrocardiogram (EKG) - 60878 07/31/19 Coronary Angio with Left Heart Cath 05/2024 Coronary Angio with Left Heart Cath 07/07 Schedule Confirmation 09/27/2024 Schedule Confirmation 09/27/2024 Schedule Confirmation 09/27/2024 Schedule Confirmation 10/04/2024 Schedule Confirmation 10/04/2024 Next Appt Details Provider Name:Darrel Moseley , 10/13/2024 07:30:00 AM, [address], [address], Provider Name:Rea mercado, 11/10/2024 01:15:00 PM, [address], [address], Insurance Providers Payer Name Payer Address Payer Phone Subscriber Number Group Number Insured Name Patient Relationship to Insured Coverage Start Date Coverage End Date [employer] Medicare Advantage PPO [address] [address] [place] [address] [phone] [id number] Melissa Ford Self - patient is the insured Medical (General) History Medical History History ICD Code Problem:Obesity (disorder) , Status :: A ctive HYPERTENSION HYPERLIPIDEMIA DIABETIC STROKE Surgical History Surgery Date(Month/Year) angiogram x 2 [facility] - > Severe 2V obstructiv e CAD, including proximal LAD disease as detailed above. > Codominant coronary system. > Normal Left ventricular end diastolic pressure of 8 mmHg. No significant gradient noted across the aortic valve on pullback. > Outpatient Cardiothoracic consult for CABG was placed. 10.04.2024
--- NOTE | 2024-10-07 04:45 | CTR_ITS ---
PROCEDURE INFORMATION: Exam: CT Head Without Contrast Exam date and time: 10/07/2024 5:05 AM Age: 69 years old Clinical indication: Syncope and collapse; Additional info: Syncope, on plavix TECHNIQUE: Imaging protocol: Computed tomography of the head without contrast. Radiation optimization: All CT scans at this facility use at least one of these dose optimization techniques: automated exposure control; mA and/or kV adjustment per patient size (includes targeted exams where dose is matched to clinical indication); or iterative reconstruction. COMPARISON: No relevant prior studies available. RADIATION DOSE METRICS: Total DLP (mGy-cm): 1236.4 FINDINGS: Brain: Normal. No hemorrhage. Unremarkable white matter. No mass effect. Cerebral ventricles: No ventriculomegaly. Paranasal sinuses: Mucosal thickening in the ethmoid sinuses. Mastoid air cells: Visualized mastoid air cells are well aerated. Bones: Unremarkable. No acute fracture. Soft tissues: There is mild left frontal scalp swelling. Vasculature: Carotid and vertebral artery atherosclerotic calcification. CT/CT head wo con* [id number] IMPRESSION: No acute intracranial injury.
--- NOTE | 2024-10-07 04:45 | CTR_ITS ---
PROCEDURE INFORMATION: Exam: CT Cervical Spine Without Contrast Exam date and time: 10/07/2024 5:05 AM Age: 69 years old Clinical indication: Injury or trauma; Fall; Blunt trauma; Additional info: Fall, neck pain TECHNIQUE: Imaging protocol: Computed tomography of the cervical spine without contrast. Radiation optimization: All CT scans at this facility use at least one of these dose optimization techniques: automated exposure control; mA and/or kV adjustment per patient size (includes targeted exams where dose is matched to clinical indication); or iterative reconstruction. COMPARISON: CT head wo con* [id number] 10/07/2024 5:05 AM RADIATION DOSE METRICS: Total DLP (mGy-cm): 555 FINDINGS: Bones/joints: There are moderate degenerative changes present. Normal alignment. No acute fractures. Lungs: Lung apices are normal. Vasculature: Carotid atherosclerotic calcification. Soft tissues: Unremarkable. CT/CT cervical spin wo con* [id number] IMPRESSION: No acute injury.
--- NOTE | 2024-10-07 04:45 | XRR_ITS ---
PROCEDURE INFORMATION: Exam: XR Chest Exam date and time: 10/07/2024 5:08 AM Age: 69 years old Clinical indication: Other: Syncope TECHNIQUE: Imaging protocol: Radiologic exam of the chest. Views: 1 view. COMPARISON: CT cervical spin wo con* [id number] 10/07/2024 5:05 AM FINDINGS: Lungs: There is volume loss with elevation of the right hemidiaphragm. Probable calcified granuloma left mid lung. No infiltrates or consolidation. Pleural spaces: Unremarkable. No pleural effusion. No pneumothorax. Heart/Mediastinum: Unremarkable. No cardiomegaly. Bones/joints: Degenerative changes throughout the spine. XR/XR chest 1V portable [id number] IMPRESSION: No acute cardiopulmonary abnormality.
--- NOTE | 2024-10-07 04:51 | ECG_ITS ---
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 Measurements Intervals [place] Rate: 83 P: 0 SD: 0 QRS: -38 QRSD: 91 T: 6 QT: 349 QTc: 411 Interpretive Statements ATRIAL FIBRILLATION LOW QRS VOLTAGE IN PRECORDIAL LEADS [QRS DEFLECTION < 1.0 mV IN CHEST LEADS] POSSIBLE RIGHT VENTRICULAR CONDUCTION DELAY [RSR (QR) IN V1/V2] No previous ECG available for comparison Electronically Signed On 10-07-2024 08:53:06 CDT by Randy Pelaez M.D. [id number]
[2024-10-07 04:54] VITALS: RESP 18
[2024-10-07] MEDS: morphine 4 mg/mL SDV 1 mL IVP (04:54)
[2024-10-07 04:55] LABS: Hematocrit 42.9 % (37-53); Hemoglobin 14.00 g/dL (11.27-16.99); Mean Corpuscular HGB Conc 32.6 g/dL (30-55); Mean Corpuscular Hemoglobin 30.6 pg (27-33); Mean Corpuscular Volume 93.9 fl (82-101); Nucleated Red Blood Cells % 0 %; Platelet Count 231 10^3/cmm (157-399); Red Blood Count 4.57 10^6/uL (3.85-5.65); White Blood Count 7.29 10^3/uL (3.29-11.43)
[2024-10-07] MEDS: ondansetron 2 mg/ML SDV 2 mL 4 MG IVP (04:55)
--- NOTE | 2024-10-07 05:02 | ED_ITS ---
HPI - Syncope 2 General: Chief Complaint: Syncope Stated Complaint: syncope Time Seen by Provider: 10/07/24 04:28 History of Present Illness: Patient named Roberto presents after an episode of syncope that occurred while going to the bathroom. He reports no prior similar episodes. Before the event, he felt fine and did not experience any prodromal symptoms. After the fall, he noted back pain and mild neck discomfort, as well as stinging sensations on the backs of his hands, particularly when touched. He denies head pain, chest pain, or neck pain except for mild discomfort at the back of the neck. He also reports some nausea earlier but not currently. He was found on the ground and does not recall getting up before EMS arrived. The patient appears pale but does not feel lightheaded while lying down. He started Plavix today, with a plan for a heart stent placement next Friday. Related Data Home Medications ?Medication ?Instructions ?Recorded ?Confirmed aspirin 81 mg tablet,delayed 81 mg PO DAILY 11/01/21 1 05/17/23 release (Adult Low Dose Aspirin) Previous Rx's ?Medication ?Instructions ?Recorded famotidine 20 mg tablet (Pepcid) 20 mg PO BID #60 tabs 03/05/22 glimepiride 4 mg tablet 4 mg PO BID #180 tabs pioglitazone 15 mg tablet (Actos) 15 mg PO DAILY #90 t abs 03/16/24 AFO orthotics #1 ea 03/25/24 amlodipine 5 mg tablet See Rx Instructions .Route 0 08/03/24 .COMPLEX #90 tabs atorvastatin 20 mg tablet See Rx Instructions .Route 0 08/31/24 .COMPLEX #90 tabs apixaban 5 mg tablet (Eliquis) See Rx Instructions .Ro [place] 09/09/24 .COMPLEX #120 tabs lisinopril 10 mg tablet See Rx Instructions .Route 0 10/01/24 .COMPLEX #180 tabs Allergies Allergy/AdvReac Type Severity Reaction Status Date / Time No Known Allergies Allergy Unverified 10/07/24 04:29 [facility] 2 PFSH: Medical History Hypertension CVA (cerebral vascular accident) Diabetes Social History Smoking and tobacco/nicotine status: unknown if used tobacco/nicotine Physical Exam 2 Const: COMMON NORMALS: no acute distress, patient oriented x3 and alert HENMT: COMMON NORMALS: normocephalic and atraumatic HEAD & SCALP: n ormocephalic and atraumatic Eye: COMMON NORMALS: Equal, round and reactive pupils present, EOMs intact bilaterally and no scleral icterus PUPIL: Yes Equal, round and reactive pupils present Neck/C-Spine: OTHER: No midline tenderness or step-off. Mild paraspinal musculature pain with motion of the neck. Resp: COMMON NORMALS: normal respiratory effort and No retractions Cardio: COMMON NORMALS: regular rate and No murmurs present (Cardio) RATE: regular rate OTHER: Irregularly irregular rhythm GI: COMMON NORMALS: Normal to inspection, nondistended, normoactive bowel sounds present, Soft to palpation and non-tender PALPATION: Yes Soft to palpation Extremity: NARRATIVE EXTREMITY EXAM: full range of motion of the hips, knees, ankles, elbows, shoulders, wrists with no increase in pain. Neuro: COMMON NORMALS: patient oriented x3 SENSORIUM/ORIENTATION: Yes alert OTHER: No lateralizing deficits of strength or sensation. Skin: OTHER: Punctate skin tear on the dorsum of the left wrist Course 2 Vital Signs: Vital signs: Vital Signs Temperature 97.7 F 10/07/24 04:25 Pulse Rate 80 10/07/24 05:55 Respiratory Rate 18 10/07/24 04:54 Blood Pressure 136/82 10/07/24 05:55 Pulse Oximetry 96 10/07/24 05:55 Oxygen Delivery Me thod Room Air 10/07/24 04:25 MDM - Syncope Medical Decision Making In summary, patient is a generally well-appearing 69-year-old male seen for syncopal episode. adds that he fell flat on his face causing a loud slapping noise when he hit the hard ground in the bathroom. He had recently stood up from using the toilet. He has never passed out like this before. CT head and neck showed nothing acute. EKG shows atrial fibrillation with a rate of [address] segment changes or T wave inversions. adds that he underwent diagnostic catheterization roughly 1 week ago and found several lesions which require stenting and repeat catheterization will be done in several days and [place] for stent placement. Orthostatic vital signs are normal. He is able to stand and walk without difficulty. He does not feel lightheaded. He is not hypoglycemic. There has been no ectopy on the monitor or sign of rapid ventricular response. As such, he will be discharged in stable and improved condition with close follow-up to cardiology. Family knows he is always welcome back to the emergency department if needed before then Lab Data 10/07/24 04:25 10/07/24 04:25 Radiology Impressions Cervical Spine CT 10/07/24 04:45 IMPRESSION: No acute injury. Chest X-Ray 10/07/24 04:45 IMPRESSION: No acute cardiopulmonary abnormality. Head CT 10/07/24 04:45 IMPRESSION: No acute intracranial injury. Laboratory Results WBC 7.29 10^3/uL (3.29-11.43) 10/07/24 04:25 RBC 4.57 10^6/uL (3.85-5.65) 10/07/24 04:25 Hgb 14.00 g/dL (11.27-16.99) 10/07/24 04:25 Hct 42.9 % (37-53) 10/07/24 04:25 MCV 93.9 fl (82-101) 10/07/24 04:25 MCH 30.6 pg (27-33) 10/07/24 04:25 MCHC 32.6 g/dL (30-55) 10/07/24 04:25 RDW 13.2 % (12.1-15.1) 10/07/24 04:25 Plt Count 231 10^3/cmm (157-399) 10/07/24 04:25 MPV 9.2 fL (7.4-10.4) 10/07/24 04:25 Neut % (Auto) 45.6 % 10/07/24 04:25 Lymph % (Auto) 43.8 % 10/07/24 04:25 [place]ckett % (Auto) 8.1 % 10/07/24 04:25 Eos % (Auto) 2.1 % 10/07/24 04:25 Baso % (Auto) 0.3 % 10/07/24 04:25 Neut # (Auto) 3.33 10^3/uL (1.8-7.7) 10/07/24 04:25 Lymph # (Auto) 3.2 10^3/uL (0.8-4.8) 10/07/24 04:25 [place]ckett # (Auto) 0.6 10^3/uL (0.2-0.9) 10/07/24 04:25 Eos # (Auto) 0.2 10^3/uL (0.0-0.8) 10/07/24 04:25 Baso # (Auto) 0.0 10^3/uL (0.0-0.1) 10/07/24 04:25 Nucleated RBC % (auto) 0 % 10/07/24 04:25 Nucleated RBCs # 0.0 /100WBC 10/07/24 04:25 Sodium 140 mmol/L (136-145) 10/07/24 04:25 Potassium 4.7 mmol/L (3.5-5.1) 10/07/24 04:25 Chloride 107 mmol/L (98-107) 10/07/24 04:25 Carbon Dioxide 19 mmol/L (22-29) L 10/07/24 04:25 Anion Gap 18.7 (5-19) 10/07/24 04:25 BUN 18 mg/dL (8-23) 10/07/24 04:25 Creatinine 1.2 mg/dL (0.7-1.2) 10/07/24 04:25 GFR Calculation 60.4 mL/min (90-130) L 10/07/24 04:25 Glucose 192 mg/dL (65-115) H 10/07/24 04:25 Calculated Osmolality 297 mOsm/kg (285-295) H 10/07/24 04:25 Calcium 8.9 mg/dL (8.5-10.5) 10/07/24 04:25 Phosphorus 4.1 mg/dL (2.5-4.5) 10/07/24 04:25 Magnesium 2.1 mg/dL (1.7-2.3) 10/07/24 04:25 Total Bilirubin 0.5 mg/dL (0.15-1.2) 10/07/24 04:25 AST 17 U/L (0-40) 10/07/24 04:25 ALT 16 U/L (0-41) 10/07/24 04:25 Alkaline Phosphatase 60 U/L (40-130) 10/07/24 04:25 Troponin T Baseline 13 ng/L (0-15) 10/07/24 04:25 NT-Pro-B Natriuret Pep 751 pg/mL (0-125) H 10/07/24 04:25 Total Protein 5.7 g/dL (6.6-8.7) L 10/07/24 04:25 Albumin 3.8 g/dL (3.5-5.2) 10/07/24 04:25 Globulin 1.9 g/dL (1.3-4.6) 10/07/24 04:25 All radiology interpretation(s) finalized by discharge EKG Data EKG 1: Interpretation: Time?0451?atrial fibrillation, rate of 83, no ST segment elevation or depression, no T wave inversions, QTc = 389 Discharge Plan Discharge Patient Disposition: Home Clinical Impression: Syncope and collapse Condition: Stable Prescriptions: No Action aspirin [Adult Low Dose Aspirin] 81 mg tablet,delayed release (DR/EC) 81 mg PO DAILY famotidine [Pepcid] 20 mg tablet 20 mg PO BID Qty: 60 11RF glimepiride 4 mg tablet 4 mg PO BID Qty: 180 11RF pioglitazone [Actos] 15 mg tablet 15 mg PO DAILY Qty: 90 11RF (DME) AFO orthotics See Rx Instructions .Route .MEDSUPPLY Qty: 1 0RF Rx Instructions: As directed amlodipine 5 mg tablet See Rx Instructions .ROUTE .COMPLEX Qty: 90 3RF Dose Instruction: Take 1 tablet by mouth once daily Rx Instructions: Take 1 tablet by mouth once daily atorvastatin 20 mg tablet See Rx Instructions .ROUTE .COMPLEX Qty: 90 3RF Dose Instruction: Take 1 tablet by mouth once daily Rx Instructions: Take 1 tablet by mouth once daily Eliquis 5 mg tablet See Rx Instructions .ROUTE .COMPLEX Qty: 120 3RF Dose Instruction: Take 1 tablet by mouth twice daily Rx Instructions: Take 1 tablet by mouth twice daily lisinopril 10 mg tablet See Rx Instructions .ROUTE .COMPLEX Qty: 180 3RF Dose Instruction: Take 1 tablet by mouth twice daily Rx Instructions: Take 1 tablet by mouth twice daily Discharge Orders: Discharge ED (Routine); Ordered 10/07/24 Ordered By: Fahad Mason Referrals: Kendrick Nuñez MD [Primary Care Provider, Family Practice] Discharge Diet: As Directed Discharge Activity: Increase activity as tolerated Patient Instructions: Syncope (ED), Patient Portal & Dottie Instructions Activity Restrictions/Additional Instructions: CT of the brain, CT cervical spine, EKG, blood work are all reassuring. Troponin is not elevated to indicate new blockage of the heart. Though he is in atrial fibrillation, rate appears stable. Blood pressure did not drop appreciably when we stood him up from a seated position. Glucose is not low. He is always welcome back in the emergency department if needed Print Language: Rwandan Coding Level of Care Code ED [employer] for Ashley Armando
[2024-10-07 05:05] LABS: Troponin(5th) Baseline 13 ng/L (0-15)
[2024-10-07 05:18] LABS: Alanine Aminotransferase 16 U/L (0-41); Albumin Level 3.8 g/dL (3.5-5.2); Alkaline Phosphatase 60 U/L (40-130); Blood Urea Nitrogen 18 mg/dL (8-23); Calcium 8.9 mg/dL (8.5-10.5); Carbon Dioxide 19 mmol/L (22-29); Chloride 107 mmol/L (98-107); Creatinine Clr Calc Pharmacy 74.9642; Globulin 1.9 g/dL (1.3-4.6); Glucose 192 mg/dL (65-115); Magnesium 2.1 mg/dL (1.7-2.3); NT Pro B Type Natriuretic Pept 751 pg/mL (0-125); Osmolality Calculated 297 mOsm/kg (285-295); Sodium 140 mmol/L (136-145); Total Protein 5.7 g/dL (6.6-8.7)
[2024-10-07 05:19] LABS: Anion Gap 18.7 (5-19); Aspartate Amino Transferase 17 U/L (0-40); Potassium 4.7 mmol/L (3.5-5.1)
[2024-10-07 05:29] VITALS: BP 108/73; BP 111/69; BP 127/81
[2024-10-07 05:55] VITALS: BP 136/82; PULSE 80; O2SAT 96
[2024-10-07 06:08] VITALS: BP 136/82; PULSE 94; O2SAT 97
== END 2024-10-07 06:10 | disposition home or self-care (01) ==
PROVIDERS: Emergency Provider Student in an Organized Health Care Education/Training Program; PCP Family Medicine
DX: R55 Syncope and collapse (principal); Z79.82 Long term (current) use of aspirin; Z79.01 Long term (current) use of anticoagulants; E11.9 Type 2 diabetes mellitus without complications; I10 Essential (primary) hypertension; Z86.73 Personal history of transient ischemic attack (TIA), and cerebral infarction without residual deficits
CPT/HCPCS: 70450; 71045; 72125; 80053; 83735; 83880; 84100; 84484; 85025; 93005; 96374; 96375; 99285; J2270; J2405; J7040

== ENCOUNTER → 2025-01-31 09:31 | Outpatient (BNVA) | payer MEDICARE, SELFPAY | PROVIDERS: PCP Family Medicine; Visit Provider Family Medicine | DX: I10 Essential (primary) hypertension (principal); E11.9 Type 2 diabetes mellitus without complications | CPT/HCPCS: 80053; 80061; 83036; 85025 ==

== ENCOUNTER 2025-02-24 10:32 | Outpatient (RCR) | payer MEDICARE, SELFPAY | END 2025-03-06 23:59 | disposition home or self-care (01) | LOC: SPT 10:32 | PROVIDERS: Visit Provider Family Medicine | DX: M50.90 Cervical disc disorder, unspecified, unspecified cervical region (principal) | CPT/HCPCS: 97161 ==

== ENCOUNTER 2025-03-07 05:00 | Outpatient (RCR) | payer MEDICARE, SELFPAY | END 2025-04-06 23:59 | disposition home or self-care (01) | LOC: SPT 05:00 | PROVIDERS: Visit Provider Family Medicine | DX: M50.90 Cervical disc disorder, unspecified, unspecified cervical region (principal) | CPT/HCPCS: 97140 ==